=== PATIENT | female | born 1960 | race African-American/Black ===

== ENCOUNTER 2016-09-29 17:44 | Emergency (ER) | payer BC ==
[~2016-09-29] VITALS: Ht 167.6 cm; Wt 152.4 kg
[~2016-09-29 17:44] MED LIST: ACTOS 45 MG45 M1 PO; ALBUTEROL2.5 MG/32 IH; AZITHROMYCIN 2250 MG PO; DIABETA PO; GLUCOPHAGE1000 MG; NEURONTIN 300300 M1 PO; NORCO 5-325 TA1 EACH PO; PREDNISONE 20 M20 MG PO; PROAIR HFA8.5 GM IH; PROVENTIL HFA6.7 G1 INH; SINGULAIR 10 MG10 M1 PO; SULINDAC 200MG200 M1 PO
[2016-09-29] MEDS ORDERED: JARDIANCE25 MG PO (18:16)
[2016-09-29] MEDS ORDERED: METHOCARBAMOL500 M2 PO (18:16)
[2016-09-29] MEDS ORDERED: VICTOZA 3-0.6 MG/0.1 SQ (18:16)
[2016-09-29] MEDS ORDERED: MOBIC15 MG PO (19:22)
[2016-09-29 20:17] VITALS: BP 146/71
== END 2016-09-29 20:20 | disposition home or self-care (01) ==
LOC: ER 17:44
DX: S92.502A Displaced unspecified fracture of left lesser toe(s), initial encounter for closed fracture (principal); S93.402A Sprain of unspecified ligament of left ankle, initial encounter; J45.909 Unspecified asthma, uncomplicated; E11.9 Type 2 diabetes mellitus without complications; Z88.5 Allergy status to narcotic agent; X58.XXXA Exposure to other specified factors, initial encounter; Y93.89 Activity, other specified; Y92.89 Other specified places as the place of occurrence of the external cause; Y99.9 Unspecified external cause status

== ENCOUNTER 2018-01-20 17:58 | Inpatient (IN) | payer BC ==
[~2018-01-20] VITALS: Ht 167.6 cm; Wt 163.7 kg
--- NOTE | ~2018-01-20 | EKG ---
[address] [place] [employer] [place] [address] ELECTROCARDIOGRAM REPORT Name: FARRAH FISHER Room #: 417-I ADM IN .R.#: [id number] Admission: 01/20/18 Attend Phys: Uday Brown MD Discharge: Date of : 56 Report #: [id number] THIS REPORT FOR: //name// [facility] Test Date: 2018-01-21 Test Time: 01:20:16 Pat Name: FARRAH FISHER Department: Room: [facility] Gender: F [employer] Operator: yaneth : 1960 Requested By: Brandie Rivera Order Number: [id number] MD: Valente Segura Measurements Intervals [place] Rate: 86 P: 31 ND: 150 QRS: -9 QRSD: 84 T: 26 QT: 365 QTc: 437 Interpretive Statements Sinus rhythm Normal tracing No previous ECG available for comparison Electronically Signed On 01-21-2018 8:26:52 CDT by Valente Segura [email or web address] <ELECTRONICALLY SIGNED> By: Valente Segura MD, [facility] 01/21/18 0826 0120 0120 Valente Segura MD, FACC /EPI
[~2018-01-20 17:58] MED LIST changes: +JARDIANCE25 MG PO; +METHOCARBAMOL500 M2 PO; +MOBIC15 MG PO; +VICTOZA 3-0.6 MG/0.1 SQ
[2018-01-20 18:06] VITALS: BP 173/74
[2018-01-20 19:45] LABS: ABSOLUTE NEUTROPHILS 11.4 thou/uL (1.4-8.2); BASOPHILS 0.6 % (0.0-2.0); EOSINOPHILS 0.1 % (0.0-3.0); HEMATOCRIT 35.8 % (37.0-47.0); HEMOGLOBIN 11.7 gm/dL (12.0-15.0); LYMPHOCYTES 7.3 % (24.0-44.0); MCH 27.6 pg (26.0-34.0); MCHC 32.8 g/dL (28.0-37.0); MCV 84.2 fL (80.0-100.0); MONOCYTES 7.3 % (1.0-8.0); PLATELET COUNT 231 thou/uL (150-400); POLYS 84.7 % (36.0-66.0); RBC 4.25 mil/uL (4.20-5.00); RDW 14.2 % (10.5-14.5); WBC 13.4 thou/uL (4.0-11.0)
[2018-01-20 19:55] LABS: CALCIUM 8.9 mg/dL (8.5-10.1); CREATININE 0.7 mg/dL (0.6-1.0); POTASSIUM 3.6 mmol/L (3.5-5.1)
[2018-01-20 20:33] LABS: URINE BILIRUBIN NEGATIVE (Negative); URINE BLOOD 1+ (Negative); URINE CLARITY SL CLOUDY; URINE COLOR YELLOW; URINE GLUCOSE-RANDOM* 3+ (Negative); URINE KETONES 2+ (Negative); URINE LEUKOCYTES-REFLEX NEGATIVE (Negative); URINE PROTEIN (DIPSTICK) TRACE (Negative); URINE UROBILINOGEN 0.2 E.U./dl (0.2-1.0)
[2018-01-20 20:38] LABS: URINE NITRITE-REFLEX POSITIVE (Negative)
[2018-01-20 20:46] LABS: BACTERIA-REFLEX >30 Many /HPF (None Seen); CASTS None Seen /LPF (None Seen); CRYSTALS None Seen /LPF (None Seen); SQUAMOUS 0-3 Few /LPF (0-3); URINE RBC 0-2 Rare /HPF (0-2)
[2018-01-20 21:27] VITALS: BP 148/69
[2018-01-20 21:29] VITALS: BP 159/71
[2018-01-21 04:35] VITALS: BP 160/75
[2018-01-21 05:58] LABS: HEMATOCRIT 34.6 % (37.0-47.0); HEMOGLOBIN 11.6 gm/dL (12.0-15.0); MCH 28.1 pg (26.0-34.0); MCHC 33.5 g/dL (28.0-37.0); RBC 4.13 mil/uL (4.20-5.00); RDW 14.5 % (10.5-14.5); WBC 12.8 thou/uL (4.0-11.0)
[2018-01-21 06:14] LABS: ANION GAP 9 mmol/L (7-16); BUN 15 mg/dL (7-18); CALCIUM 8.4 mg/dL (8.5-10.1); CHLORIDE 98 mmol/L (98-107); CO2 25 mmol/L (21-32); CREATININE 0.7 mg/dL (0.6-1.0); GLUCOSE 108 mg/dL (74-106); POTASSIUM 3.6 mmol/L (3.5-5.1); SODIUM 132 mmol/L (136-145); TROPONIN-I <0.06 ng/mL (<0.06)
[2018-01-21 07:34] VITALS: BP 147/71
[2018-01-21 07:49] VITALS: BP 112/35
[2018-01-21 16:00] VITALS: BP 159/80
[2018-01-21 19:15] VITALS: BP 156/69
[2018-01-22 04:00] VITALS: BP 110/53
[2018-01-22 07:02] VITALS: BP 102/49
[2018-01-22] MEDS ORDERED: CEFDINIR300 MG PO (10:16)
[2018-01-22 10:32] VITALS: BP 102/49
== END 2018-01-22 11:19 | disposition home or self-care (01) | DRG 872 ==
LOC: ER 17:58 → EROBS 21:04 → 4E 21:04
PROVIDERS: Emergency Medicine; Nurse Practitioner Family
DX: A41.9 Sepsis, unspecified organism (principal); N12 Tubulo-interstitial nephritis, not specified as acute or chronic; I10 Essential (primary) hypertension; J45.909 Unspecified asthma, uncomplicated; E11.40 Type 2 diabetes mellitus with diabetic neuropathy, unspecified; Z79.899 Other long term (current) drug therapy; Z88.6 Allergy status to analgesic agent; Z88.8 Allergy status to other drugs, medicaments and biological substances; Z87.891 Personal history of nicotine dependence
CPT/HCPCS: 10183

== ENCOUNTER 2018-01-23 15:29 | Inpatient (IN) | payer BC ==
[~2018-01-23] VITALS: Ht 167.6 cm; Wt 154.7 kg
[~2018-01-23 15:29] MED LIST changes: +CEFDINIR300 MG PO
[2018-01-23 15:37] VITALS: BP 171/79
[2018-01-23 16:29] LABS: CREATININE 0.6 mg/dL (0.6-1.0); POTASSIUM 5.5 mmol/L (3.5-5.1)
[2018-01-23 16:34] LABS: TOTAL BILIRUBIN 0.6 mg/dL (<0.1-1.0); TOTAL PROTEIN 8.4 g/dL (6.4-8.2)
[2018-01-23 18:55] LABS: ABSOLUTE NEUTROPHILS 11.4 thou/uL (1.4-8.2); BASOPHILS 0.9 % (0.0-2.0); EOSINOPHILS 0.3 % (0.0-3.0); HEMATOCRIT 32.9 % (37.0-47.0); HEMOGLOBIN 10.9 gm/dL (12.0-15.0); LYMPHOCYTES 7.4 % (24.0-44.0); MCH 27.8 pg (26.0-34.0); MCHC 33.2 g/dL (28.0-37.0); MCV 83.9 fL (80.0-100.0); MONOCYTES 6.6 % (1.0-8.0); POLYS 84.8 % (36.0-66.0); RBC 3.92 mil/uL (4.20-5.00); RDW 14.4 % (10.5-14.5); WBC 13.4 thou/uL (4.0-11.0)
[2018-01-23 18:56] LABS: URINE BILIRUBIN NEGATIVE (Negative); URINE BLOOD TRACE (Negative); URINE CLARITY CLEAR; URINE COLOR YELLOW; URINE GLUCOSE-RANDOM* 3+ (Negative); URINE KETONES 3+ (Negative); URINE LEUKOCYTES-REFLEX NEGATIVE (Negative); URINE NITRITE-REFLEX NEGATIVE (Negative); URINE PROTEIN (DIPSTICK) TRACE (Negative); URINE UROBILINOGEN 0.2 E.U./dl (0.2-1.0)
[2018-01-23 18:58] LABS: PLATELET COUNT 320 thou/uL (150-400)
[2018-01-23 19:58] VITALS: BP 181/56
[2018-01-23 20:24] VITALS: BP 148/63
[2018-01-24 00:32] VITALS: BP 110/61
[2018-01-24 04:34] VITALS: BP 128/45
[2018-01-24 08:00] VITALS: BP 137/41
[2018-01-24 08:06] LABS: HEMATOCRIT 33.2 % (37.0-47.0); HEMOGLOBIN 11.1 gm/dL (12.0-15.0); MCH 28.2 pg (26.0-34.0); MCHC 33.4 g/dL (28.0-37.0); MCV 84.4 fL (80.0-100.0); RBC 3.94 mil/uL (4.20-5.00); RDW 14.5 % (10.5-14.5); WBC 10.6 thou/uL (4.0-11.0)
[2018-01-24 08:17] LABS: CALCIUM 8.2 mg/dL (8.5-10.1); CREATININE 0.6 mg/dL (0.6-1.0)
[2018-01-24 08:20] LABS: POTASSIUM 3.4 mmol/L (3.5-5.1)
[2018-01-24 16:00] VITALS: BP 145/61
[2018-01-25 03:47] VITALS: BP 117/44
[2018-01-25 08:00] VITALS: BP 138/77
[2018-01-25 11:07] LABS: ABSOLUTE NEUTROPHILS 7.3 thou/uL (1.4-8.2); BASOPHILS 0.4 % (0.0-2.0); EOSINOPHILS 1.4 % (0.0-3.0); HEMATOCRIT 30.6 % (37.0-47.0); HEMOGLOBIN 10.3 gm/dL (12.0-15.0); LYMPHOCYTES 10.3 % (24.0-44.0); MCH 28.1 pg (26.0-34.0); MCHC 33.6 g/dL (28.0-37.0); MCV 83.7 fL (80.0-100.0); MONOCYTES 5.9 % (1.0-8.0); PLATELET COUNT 337 thou/uL (150-400); RBC 3.65 mil/uL (4.20-5.00); RDW 14.8 % (10.5-14.5); WBC 8.9 thou/uL (4.0-11.0)
[2018-01-25 11:15] LABS: CALCIUM 8.7 mg/dL (8.5-10.1); CREATININE 0.8 mg/dL (0.6-1.0); POTASSIUM 3.2 mmol/L (3.5-5.1)
[2018-01-25 16:00] VITALS: BP 118/60; BP 148/60
[2018-01-25 19:44] VITALS: BP 145/57
[2018-01-26 04:06] LABS: HEMATOCRIT 29.1 % (37.0-47.0); HEMOGLOBIN 9.9 gm/dL (12.0-15.0); MCH 28.6 pg (26.0-34.0); MCHC 33.9 g/dL (28.0-37.0); MCV 84.3 fL (80.0-100.0); RBC 3.45 mil/uL (4.20-5.00); RDW 14.5 % (10.5-14.5); WBC 8.9 thou/uL (4.0-11.0)
[2018-01-26 04:21] LABS: CALCIUM 8.9 mg/dL (8.5-10.1); CREATININE 0.7 mg/dL (0.6-1.0); POTASSIUM 3.4 mmol/L (3.5-5.1)
[2018-01-26 04:41] VITALS: BP 138/65
[2018-01-26 08:37] VITALS: BP 133/61
[2018-01-26 20:08] VITALS: BP 150/65
[2018-01-27 04:26] VITALS: BP 141/51
[2018-01-27 05:43] LABS: HEMATOCRIT 31.8 % (37.0-47.0); HEMOGLOBIN 10.5 gm/dL (12.0-15.0); MCH 28.1 pg (26.0-34.0); MCV 85.1 fL (80.0-100.0); RBC 3.73 mil/uL (4.20-5.00); RDW 14.8 % (10.5-14.5); WBC 7.7 thou/uL (4.0-11.0)
[2018-01-27 05:57] LABS: CALCIUM 8.5 mg/dL (8.5-10.1); CREATININE 0.7 mg/dL (0.6-1.0); POTASSIUM 3.7 mmol/L (3.5-5.1)
[2018-01-27] MEDS ORDERED: AUGMENTIN 875-1 EACH PO (14:03)
[2018-01-27] MEDS ORDERED: MUCINEX600 MG PO (14:04)
[2018-01-27 14:31] VITALS: BP 141/51
== END 2018-01-27 16:05 | disposition home or self-care (01) | DRG 178 ==
LOC: ER 15:29 → EROBS 19:36 → 4W 19:36 → ENTRNSPT 01-27 15:55 → 4W 01-27 16:05
PROVIDERS: Hospitalist; Nurse Practitioner Family
DX: J69.0 Pneumonitis due to inhalation of food and vomit (principal); Z68.43 Body mass index [BMI] 50.0-59.9, adult; N12 Tubulo-interstitial nephritis, not specified as acute or chronic; J45.909 Unspecified asthma, uncomplicated; E11.40 Type 2 diabetes mellitus with diabetic neuropathy, unspecified; E87.5 Hyperkalemia; Y95 Nosocomial condition; I10 Essential (primary) hypertension; B96.20 Unspecified Escherichia coli [E. coli] as the cause of diseases classified elsewhere; E66.01 Morbid (severe) obesity due to excess calories; Z87.891 Personal history of nicotine dependence; Z90.49 Acquired absence of other specified parts of digestive tract; Z79.899 Other long term (current) drug therapy; Z88.5 Allergy status to narcotic agent; Z88.8 Allergy status to other drugs, medicaments and biological substances; Z82.49 Family history of ischemic heart disease and other diseases of the circulatory system; Z83.3 Family history of diabetes mellitus
CPT/HCPCS: 10045